=== PATIENT | male | born 2000 ===

== ENCOUNTER 2023-12-30 11:29 | Emergency (ER) | payer OTHER ==
[~2023-12-30] VITALS: Ht 190.5 cm; Wt 100.7 kg
[2023-12-30 13:06] VITALS: BP 138/73
== END 2023-12-30 13:02 | disposition home or self-care (01) ==
LOC: ED 11:29
DX: S01.81XA Laceration without foreign body of other part of head, initial encounter (principal); W22.8XXA Striking against or struck by other objects, initial encounter
CPT/HCPCS: 12011; 99282

== ENCOUNTER 2024-04-11 08:03 | Emergency (ER) | payer OTHER ==
[~2024-04-11] VITALS: Ht 190.5 cm; Wt 101.0 kg
[2024-04-11 09:05] VITALS: BP 148/74
== END 2024-04-11 09:06 | disposition home or self-care (01) ==
LOC: ED 08:03
DX: Z18.10 Retained metal fragments, unspecified (principal)
CPT/HCPCS: 10120; 99283-25